=== PATIENT | female | born 1995 | race Caucasian/White ===

== ENCOUNTER 2019-01-26 13:03 | Outpatient (CLI) | payer BC | END 2019-01-26 21:04 | disposition home or self-care (01) | LOC: SRD 13:03 | PROVIDERS: ATTEND Pediatrics | DX: S59.911A Unspecified injury of right forearm, initial encounter (principal); X58.XXXA Exposure to other specified factors, initial encounter; Y93.89 Activity, other specified; Y92.89 Other specified places as the place of occurrence of the external cause; Y99.8 Other external cause status | CPT/HCPCS: 73090 ==